=== PATIENT | female | born 1985 | race Hispanic/Latino ===

== ENCOUNTER 2017-11-29 17:11 | Inpatient (IN) | payer OTHER ==
[~2017-11-29] VITALS: Ht 165.1 cm; Wt 75.3 kg
[2017-11-29] MEDS ORDERED: HYDROMORPHONE 1MG/1ML INJ IV PRN (17:30)
[2017-11-29] MEDS: DEXTROSE 5%/LACTATED RINGERS 1,000 ML IV SCH (17:54)
[2017-11-29] MEDS ORDERED: HYDROMORPHONE 2MG/ML INJ IV PRN (18:00)
[2017-11-29 18:13] VITALS: BP 149/72
[2017-11-29 18:44] LABS: BASOPHILS % 0.9 % (0.0-1.0); EOSINOPHILS # (AUTO) 0.2 (0.0-0.4); EOSINOPHILS % 3.2 % (0.0-6.0); HEMATOCRIT 39.4 % (34.2-44.1); HEMOGLOBIN 13.5 g/dL (12.0-16.0); LYMPHOCYTES % 20.4 % (18.0-39.1); MEAN CORPUSCULAR HEMOGLOBIN 33.2 pg (28-32); MEAN CORPUSCULAR HGB CONC 34.3 g/dL (31-35); MEAN CORPUSCULAR VOLUME 96.8 fL (81-99); MONOCYTES # (AUTO) 0.4 (0.2-0.8); MONOCYTES % 7.7 % (4.4-11.3); NEUTROPHILS # (AUTO) 3.1 (2.1-6.9); NEUTROPHILS % 67.6 % (38.7-80.0); PLATELET COUNT 277 x10e3/uL (140-360); RED BLOOD COUNT 4.07 x10e6/uL (3.6-5.1); RED CELL DISTRIBUTION WIDTH 12.6 % (11.7-14.4)
[2017-11-29 19:02] LABS: ALANINE AMINOTRANSFERASE 767 IU/L (0-55); ALBUMIN 3.8 g/dL (3.5-5.0); ALKALINE PHOSPHATASE 447 IU/L (40-150); AMYLASE 75 U/L (25-125); ANION GAP 14.7 mmol/L (8-16); BLOOD UREA NITROGEN 6 mg/dL (7-26); BUN/CREATININE RATIO 9 (6-25); CALCIUM 9.1 mg/dL (8.4-10.2); CARBON DIOXIDE 24 mmol/L (22-29); CHLORIDE 106 mmol/L (98-107); CREATININE, SERUM 0.69 mg/dL (0.57-1.11); EST GLOMERULAR FILTRATION RATE > 60 ML/MIN (60-); GLUCOSE 98 mg/dL (74-118); POTASSIUM 3.7 mmol/L (3.5-5.1); SODIUM 141 mmol/L (136-145)
[2017-11-29] MEDS ORDERED: GADOBENATE DIMEGLUMINE 1 ML IV ONE (19:23)
[2017-11-29] MEDS ORDERED: SODIUM CHLORIDE 0.9% 50ML 50 ML ONE (19:23)
[2017-11-29 20:00] VITALS: BP 123/67
[2017-11-29] MEDS ORDERED: MIDAZOLAM HCL 2 MG/2 ML VIAL ONE (20:12)
[2017-11-29] MEDS ORDERED: FENTANYL CITRATE/PF 100MCG/2 ML INJ ONE (20:12)
[2017-11-29] MEDS ORDERED: LIDOCAINE HCL 2% LOCAL INJ 5 ML SDV VIAL INJ ONE (20:13)
[2017-11-29] MEDS ORDERED: PROPOFOL IV EMULSION 10 MG/ML 50 ML VIAL ONE (20:13)
[2017-11-29] MEDS ORDERED: ACETAMINOPHEN 1000 MG/100 ML IV PRN (20:30)
[2017-11-29] MEDS: PIPER-TAZ 3.375 GM 50 ML IV SCH (20:50)
--- NOTE | 2017-11-29 21:17 | Diagnostic Imaging Report ---
EXAM: MRI MRCP O DATE: 11/29/2017 5:27 PM INDICATION: Bile duct stones, gallstones COMPARISON: None TECHNIQUE: Multiplanar, multisequence imaging of the abdomen was performed pre- and post-IV administration of 14cc of MultiHance. Dynamic enhanced images of the abdomen were included. 3-D MRCP fat-saturated sequence was performed post contrast with MIP reformations. FINDINGS: LIVER/BILIARY: Incidental liver cysts. No suspicious masses. There is moderate intra and extrahepatic biliary ductal dilation, the common bile duct measuring 1.2 cm. There is smooth undulated mild narrowing of the distal common bile duct (series 13 image 9). No filling defects in the biliary tree. GALLBLADDER: Multiple gallstones are present. No wall thickening or pericholecystic fluid. SPLEEN: Unremarkable PANCREAS: Unremarkable ADRENALS: No nodules KIDNEYS: No masses. No hydronephrosis. VISUALIZED GI TRACT: No evidence of obstruction. VESSELS: Unremarkable PERITONEUM/RETROPERITONEUM: No free air or fluid LYMPH NODES: No lymphadenopathy BONES: No suspicious bone lesions. IMPRESSION: 1. Cholelithiasis without evidence of acute cholecystitis. 2. Moderate biliary ductal dilation with mild narrowing/stricturing of the distal common bile duct, which may be related to recent/prior stone passage. No choledocholithiasis. Signed by: Dr Teri Hinds MD on 11/29/2017 9:13 PM
[2017-11-29] MEDS: METRONIDAZOLE 500MG/NS 100ML 100 ML IV SCH (21:56)
[2017-11-29] MEDS ORDERED: CIPRO500 MG PO (23:27)
[2017-11-29] MEDS ORDERED: OMEPRAZOLE40 MG PO (23:27)
[2017-11-29] MEDS ORDERED: NAPROXEN250 MG PO (23:27)
[2017-11-29] MEDS ORDERED: HYDROXYCHLOROQ200 MG PO (23:27)
[2017-11-29] MEDS ORDERED: DICYCLOMINE HCL10 MG PO (23:27)
[2017-11-30] VITALS (8 sets, daily range): BP systolic 110–135; BP diastolic 58–77
--- NOTE | 2017-11-30 00:39 | Consultation ---
DATE OF CONSULTATION: November 29, 2017 HISTORY: This is a 32-year-old very nice lady, who has history of rheumatoid arthritis, admitted to the hospital today because of problems with abdominal pain mainly in the right upper quadrant area radiating towards the back along with jaundice and her workup so far revealed that her WBC is 4.6, and the bilirubin is 4.4, with AST of 309, ALT of 67, and the alk phos was 447. She had an MRCP done, but results still pending. She denies any fever, chills or bleeding along with this problem. Her other medical problem is significant for history of rheumatoid arthritis. ALLERGIES: NONE. SOCIAL HISTORY: Denies any alcohol use. FAMILY HISTORY: Noncontributory. REVIEW OF SYSTEMS: Denies any chest pain. No shortness of breath. Denies any dysphagia or odynophagia. Denies any dysuria or hematuria or any kind of syncopal episodes. EXAM GENERAL: Patient is awake, alert, appeared to be stable, and not in acute distress. VITAL SIGNS: Afebrile currently with stable vital signs. HEAD, EYES, EARS, NOSE, THROAT: Normocephalic. Sclerae are anicteric. NECK: Supple. HEART: Regular. ABDOMEN: Soft. There is tenderness in the right upper quadrant area. There is no rebound or mass. EXTREMITIES: No cyanosis or clubbing. LAB VALUES: Significant for bilirubin 4.4, AST of 309, ALT of 767, alk phos is 447. IMPRESSION: Gallstones with possible choledocholithiasis. RECOMMENDATION: Continue antibiotics at this point. We will proceed with ERCP for further evaluation. Risks and benefits as discussed with patient and the family in detail. Patient and the family understands risks and they want to proceed. Job#: [id number] CQ cc:RUSS MILTON MD
[2017-11-30] MEDS: DEXTROSE 5%/LACTATED RINGERS 1,000 ML IV SCH ×3 (02:30→16:13)
[2017-11-30] MEDS: PIPER-TAZ 3.375 GM 50 ML IV SCH ×4 (02:30→20:44)
[2017-11-30] MEDS: METRONIDAZOLE 500MG/NS 100ML 100 ML IV SCH ×3 (05:13→21:45)
[2017-11-30 07:39] LABS: INR 0.95; PROTHROMBIN TIME 13.2 seconds (11.9-14.5)
[2017-11-30 07:44] LABS: ALBUMIN 3.3 g/dL (3.5-5.0); BILIRUBIN,DIRECT 1.3 mg/dL (0.0-5.0)
[2017-11-30] MEDS: PANTOPRAZOLE 40 MG 10ML VIAL IV SCH (09:00)
[2017-11-30] MEDS ORDERED: IOPAMIDOL 610MG/1ML 300 MG/ML VIAL IV ONE (14:16)
[2017-11-30] MEDS ORDERED: FENTANYL CITRATE/PF 100MCG/2 ML INJ ONE (18:48)
[2017-11-30] MEDS ORDERED: MIDAZOLAM HCL 2 MG/2 ML VIAL ONE (18:48)
[2017-12-01] VITALS: BP 105/55
[2017-12-01] MEDS: DEXTROSE 5%/LACTATED RINGERS 1,000 ML IV SCH ×3 (01:45→14:46)
[2017-12-01] MEDS: PIPER-TAZ 3.375 GM 50 ML IV SCH ×4 (01:45→20:18)
[2017-12-01 04:00] VITALS: BP 108/52
[2017-12-01] MEDS: METRONIDAZOLE 500MG/NS 100ML 100 ML IV SCH ×3 (06:30→22:40)
[2017-12-01 07:37] LABS: BILIRUBIN,DIRECT 0.8 mg/dL (0.0-5.0)
[2017-12-01 08:51] VITALS: BP_SYST 108; BP_SYST 109; BP_DIAS 52; BP_DIAS 55
[2017-12-01] MEDS: PANTOPRAZOLE 40 MG 10ML VIAL IV SCH (09:00)
[2017-12-01] MEDS ORDERED: BUPIVACAINE 0.25% 30ML SDV INJ ONE (10:32)
[2017-12-01] MEDS ORDERED: FENTANYL CITRATE/PF 100MCG/2 ML INJ ONE (13:52)
--- NOTE | 2017-12-01 13:57 | Operative Report ---
DATE OF PROCEDURE: December 01, 2017 PREOPERATIVE DIAGNOSIS: Cholecystitis and cholelithiasis, status post removal of common duct stones. POSTOPERATIVE DIAGNOSIS: Cholecystitis and cholelithiasis, status post removal of common duct stones. OPERATION PERFORMED: Laparoscopic cholecystectomy. [employer] OPERATOR: Dr. Stefan Cho ANESTHESIA: General endotracheal. COMPLICATIONS: None. ESTIMATED BLOOD LOSS: Minimal. DESCRIPTION OF PROCEDURE: With the patient lying in bed in the supine position, under good general endotracheal anesthesia, the abdomen was prepped with Betadine solution and draped in the usual manner. A Veress needle was introduced into the umbilicus. A pneumoperitoneum was established without any difficulty. An 11-mm trocar was placed into the umbilicus, and a 10-mm video laparoscope was placed into the intraabdominal cavity. Under direct vision, three 5-mm trocars were placed in the right subcostal region. Video laparoscopy at this point revealed a thick-walled gallbladder that was full of stones and was covered with adhesions in the lower part of the of the gallbladder. The cystic duct was rather short and rather thickened from the chronic inflammatory process. The rest of the abdominal exploration was within normal limits. All of the adhesions of the gallbladder were then slowly and carefully taken down. The peritoneum overlying the neck of the gallbladder was then opened. The cystic duct was identified. The cystic artery was identified, doubly clipped and divided. The cystic duct was too large to be closed with a clip secondary to having passed stones into the common duct that had been removed the day before. The neck of the gallbladder was then cut with the scissors, and the cystic duct that was foreshortened was ligated with 30 PDS Endoloop. This gave us good control of the cystic duct. The gallbladder was then taken off the liver bed using the cautery scissors, and hemostasis was ascertained. The gallbladder was placed in a bag and removed through the umbilicus without any difficulty. Video laparoscopy was then again carried out. The liver bed was found to be perfectly dry. All of the excess fluid was aspirated. The pneumoperitoneum was evacuated, and all the trocars were removed under direct vision. The midline fascia at the umbilicus was then closed with a [id number] of #0 Vicryl. All layers were infiltrated on the way out with a solution of 1/4 percent Marcaine. Subcutaneous tissue was approximated with 3-0 Vicryl, and the skin was closed with subcuticular 5-0 Vicryl. Benzoin, Steri-Strips and Band-Aids were applied. The sponge, lap and needle count was correct. Patient tolerated the procedure well and returned to the recovery room in stable condition. Job#: [id number]
[2017-12-01] MEDS ORDERED: ONDANSETRON HCL INJ 2 MG/ML VIAL ONE ×2 (15:59→17:53)
[2017-12-01] MEDS: ONDANSETRON HCL INJ 2 MG/ML VIAL IV PRN (16:15)
[2017-12-01] MEDS ORDERED: SEVOFLURANE INHAL SOLN 250 ML PEN BTL ONE (17:53)
[2017-12-01] MEDS ORDERED: LIDOCAINE HCL 2% LOCAL INJ 5 ML SDV VIAL INJ ONE (17:53)
[2017-12-01] MEDS ORDERED: ROCURONIUM BROMIDE 10 MG/ML 5ML VIAL ONE (17:53)
[2017-12-01] MEDS ORDERED: PROPOFOL IV EMULSION 10 MG/ML 20 ML VIAL ONE (17:53)
[2017-12-01] MEDS ORDERED: GLYCOPYRROLATE INJ 1MG/ 5 ML SYR ONE (17:53)
[2017-12-01] MEDS ORDERED: NEOSTIGMINE 5 MG/5ML SYR ONE (17:53)
[2017-12-01] MEDS ORDERED: DEXAMETHASONE SOD PHOS INJ 4 MG/ML VIAL ONE (17:53)
[2017-12-01] MEDS ORDERED: ACETAMINOPHEN 1000 MG/100 ML IV ONE (17:53)
[2017-12-01] MEDS: HYDROCODONE/APAP 7.5MG-325MG 1 EA TAB PO PRN ×2 (18:30→22:40)
[2017-12-01 19:00] VITALS: BP 114/66
[2017-12-01 20:00] VITALS: BP 110/68
[2017-12-01 20:30] VITALS: BP 110/68
[2017-12-02] VITALS (8 sets, daily range): BP systolic 96–110; BP diastolic 51–59
[2017-12-02] MEDS: PIPER-TAZ 3.375 GM 50 ML IV SCH ×4 (01:41→20:00)
[2017-12-02] MEDS: DEXTROSE 5%/LACTATED RINGERS 1,000 ML IV SCH ×3 (01:41→17:30)
[2017-12-02] MEDS: HYDROCODONE/APAP 7.5MG-325MG 1 EA TAB PO PRN ×3 (05:00→22:10)
[2017-12-02] MEDS: METRONIDAZOLE 500MG/NS 100ML 100 ML IV SCH ×2 (05:10→13:47)
[2017-12-02 07:01] LABS: BASOPHILS % 0.4 % (0.0-1.0); EOSINOPHILS # (AUTO) 0.1 (0.0-0.4); EOSINOPHILS % 1.1 % (0.0-6.0); HEMATOCRIT 32.3 % (34.2-44.1); HEMOGLOBIN 10.8 g/dL (12.0-16.0); LYMPHOCYTES % 24.5 % (18.0-39.1); MEAN CORPUSCULAR HEMOGLOBIN 32.5 pg (28-32); MEAN CORPUSCULAR HGB CONC 33.4 g/dL (31-35); MEAN CORPUSCULAR VOLUME 97.3 fL (81-99); MONOCYTES # (AUTO) 0.9 (0.2-0.8); MONOCYTES % 11.1 % (4.4-11.3); NEUTROPHILS % 62.7 % (38.7-80.0); PLATELET COUNT 221 x10e3/uL (140-360); RED BLOOD COUNT 3.32 x10e6/uL (3.6-5.1); RED CELL DISTRIBUTION WIDTH 12.7 % (11.7-14.4)
[2017-12-02 07:35] LABS: ALANINE AMINOTRANSFERASE 400 IU/L (0-55); ALBUMIN 2.9 g/dL (3.5-5.0); ALKALINE PHOSPHATASE 251 IU/L (40-150); AMYLASE 82 U/L (25-125); ANION GAP 11.3 mmol/L (8-16); BLOOD UREA NITROGEN < 5 mg/dL (7-26); CALCIUM 8.3 mg/dL (8.4-10.2); CARBON DIOXIDE 26 mmol/L (22-29); CHLORIDE 106 mmol/L (98-107); CREATININE, SERUM 0.67 mg/dL (0.57-1.11); EST GLOMERULAR FILTRATION RATE > 60 ML/MIN (60-); GLUCOSE 97 mg/dL (74-118); POTASSIUM 3.3 mmol/L (3.5-5.1); SODIUM 140 mmol/L (136-145)
[2017-12-02 07:36] LABS: BUN/CREATININE RATIO 7 (6-25)
[2017-12-02] MEDS: PANTOPRAZOLE 40 MG 10ML VIAL IV SCH (08:26)
[2017-12-02] MEDS: ONDANSETRON HCL INJ 2 MG/ML VIAL IV PRN (08:29)
--- NOTE | 2017-12-02 12:49 | Diagnostic Imaging Report ---
PROCEDURE:ERCP TO BE READ TECHNIQUE:Multiple images are submitted from an ERCP procedure dated 11/30/2017. No radiologist was present for the procedure. INDICATION:Not provided COMPARISON:MRI/MRCP from 11/29/2017. FINDINGS: After the biliary injection of contrast material, ERCP images demonstrate mild extrahepatic biliary dilatation. A plastic stent was placed across a presumed stricture in the distal common bile duct. Numerous stones are present within the gallbladder. CONCLUSION: As above. Dictated by: Luis Armando Ansari M.D. on 12/02/2017 at 12:58 Electronically approved by: Luis Armando Ansari M.D. on 12/02/2017 at 12:58
[2017-12-02] MEDS ORDERED: NORCO 7.5-3251 EACH PO (20:35)
== END 2017-12-02 22:00 | disposition home or self-care (01) | DRG 419 ==
LOC: MED/SURG 17:11
PROVIDERS: ADMIT Surgery; ATTEND Surgery
PROC: 0FT44ZZ Resection of Gallbladder, Percutaneous Endoscopic Approach (ICD-10-PCS; principal; 2017-12-01 12:00)
DX: K80.10 Calculus of gallbladder with chronic cholecystitis without obstruction (principal); M06.9 Rheumatoid arthritis, unspecified
CPT/HCPCS: 36415; 74183; 74328; 80053; 80076; 82150; 84702; 85025; 85610; 88304; C1766; J1100; J2001; J2250; J2405; J2543; J7120